=== PATIENT | female | born 1980 | race Caucasian/White ===

== ENCOUNTER 2017-08-20 14:08 | Emergency (ER) | payer OTHER ==
[~2017-08-20] VITALS: Ht 160 cm; Wt 54.4 kg
[~2017-08-20 14:08] MED LIST: ARIP10 PO; CARI350 PO; CIPR500 PO; CIPRO500 MG PO; CITA20 PO; CYCL10 PO; Cleocin HCl300 MG PO; DIAZ10 PO; DIAZ5 PO; DOXY100 PO; EPIN.3I IM; FAMO40 PO; HYDACE10B PO; HYDACE5 PO; HYDR1TAB94 PO; IBUP800 PO; Imitrex25 MG PO; MAGIC MOUTHWASH; METTREX2.5 PO; MISO100 PO; Norco 5-325 Ta1 EACH PO; ONDA8ODT MM; OXYACE5T PO; PHENA200 PO; Percocet 5-3251 EACH PO; Pyridium200 MG PO; RXHYD5325 PO; RXHYDACE PO; RXONDA4ODT MM; RXOXYACE PO; Valtrex1000 MG PO; [UNRECOGNIZED DRUG - OTHER]
[2017-08-20] MEDS ORDERED: OXYC1TAB11 (15:36)
== END 2017-08-20 17:08 ==
LOC: ER 14:08
DX: N63.22 Unspecified lump in the left breast, upper inner quadrant (principal); F17.210 Nicotine dependence, cigarettes, uncomplicated; Z91.030 Bee allergy status; Z88.2 Allergy status to sulfonamides; Z91.011 Allergy to milk products
CPT/HCPCS: 76642

== ENCOUNTER 2018-04-16 06:23 | Day surgery (SDC) | payer OTHER ==
[~2018-04-16] VITALS: Ht 157.5 cm; Wt 50.3 kg
[~2018-04-16 06:23] MED LIST changes: +EPIPEN 2-P0.3 MG/0.3 IM; +Imitrex50 MG PO; +MIGRAINE MEDICATION; +OXYC1TAB11; +OXYC1TAB11 PO
--- NOTE | 2018-04-16 08:21 | NUR ---
04/16/18 0821 Jammie Razo ORSC.JAR LOWER PREP [email or web address].[email or web address] UPPER PREP
--- NOTE | 2018-04-16 08:52 | NUR ---
04/16/18 0852 Junaid Leach PATIENT REPORTS 7/10 CRAMPY PAIN, PER MD ORDERS GAVE IV PAIN MEDICATION, WILL CONTINUE TO MONITOR. PATIENT VSS
--- NOTE | 2018-04-16 10:38 | NUR ---
04/16/18 Junaid Carrillo LATE ENTRY NARRATIVE PATIENT INTO SDU RECLINER RESTING, IS AT CHAIRSIDE, REPORTS 6/10 PAIN, PER MD ORDERS GAVE IV PAIN MEDICATION, WILL CONTINUE TO MONITOR. PATIENT VSS, TOLERATING PO FLUIDS AND CRACKERS WELL. DISCHARGE INSTRUCTIONS REVIEWED WITH PATIENT AND SPOUSE, BOTH DENY HAVING ANY QUESTIONS AT THE MOMENT. REASSESSED PATIENT PAIN, PATIENT REPORTS 5/10 PAIN AND IS TOLERABLE WHEN NOT MOVING "BUT GETS WORSE WHEN I MOVE AROUND", PER MD ORDERS GAVE DOSE OF PO PAIN MEDICATION. NURSE ASSISTED PATIENT VIA WC TO HER RIDE HOME.
--- NOTE | 2018-04-16 11:05 | NUR ---
04/16/18 1105 Junaid Leach PATIENT UNABLE TO REMOVE ALL JEWELERY, PATIENT SIGNED FORM AND TAPED A COUPLE PIERCINGS, TOOK PATIENTS JEWELERY WHEN SHE WENT BACK TO THE OR
== END 2018-04-16 10:13 | disposition home or self-care (01) ==
LOC: ORSCSDS 06:23
PROVIDERS: Obstetrics & Gynecology
PROC: 0U5F4ZZ Destruction of Cul-de-sac, Percutaneous Endoscopic Approach (ICD-10-PCS; principal; 2018-04-16 07:30)
DX: R10.2 Pelvic and perineal pain (principal); N80.3 Endometriosis of pelvic peritoneum; N73.6 Female pelvic peritoneal adhesions (postinfective); F17.210 Nicotine dependence, cigarettes, uncomplicated
CPT/HCPCS: J1100; J1885; J2250; J2405; J2710; J3010

== ENCOUNTER 2020-02-07 16:11 | Emergency (ER) | payer BC ==
[~2020-02-07] VITALS: Ht 157.5 cm; Wt 47.6 kg
[~2020-02-07 16:11] MED LIST changes: +FLUC150A PO; +Keflex500 MG PO
[2020-02-07] MEDS ORDERED: Kristalose20 GM PO (18:04)
[2020-02-07] MEDS ORDERED: METAMUCIL POWD575 GM PO (18:04)
== END 2020-02-07 18:45 | disposition home or self-care (01) ==
LOC: ER 16:11
DX: R10.9 Unspecified abdominal pain (principal); F17.210 Nicotine dependence, cigarettes, uncomplicated; Z88.2 Allergy status to sulfonamides; Z91.030 Bee allergy status; Z91.011 Allergy to milk products
CPT/HCPCS: 74018; 99283-25

== ENCOUNTER 2020-10-29 11:57 | Emergency (ER) | payer BC ==
[~2020-10-29] VITALS: Ht 157.5 cm; Wt 50.8 kg
[~2020-10-29 11:57] MED LIST changes: +Kristalose20 GM PO; +METAMUCIL POWD575 GM PO
[2020-10-29 12:34] LABS: BASOPHILS ABSOLUTE AUTO 0.04 K/mm3 (0.00-0.23); BASOPHILS PERCENT AUTO 1 % (0-2); EOSINOPHILS ABSOLUTE AUTO 0.29 K/mm3 (0.00-0.68); EOSINOPHILS PERCENT AUTO 4 % (0-6); Hematocrit 39.4 % (33.0-51.0); Hemoglobin 13.2 g/dL (11.5-16.0); IMMATURE GRAN ABSOLUTE AUTO 0.01 K/mm3 (0.00-0.10); IMMATURE GRAN PERCENT AUTO 0 % (0-1); LYMPHOCYTES ABSOLUTE AUTO 3.29 K/mm3 (0.84-5.20); LYMPHOCYTES PERCENT AUTO 46 % (21-46); MONOCYTES ABSOLUTE AUTO 0.48 K/mm3 (0.16-1.47); MONOCYTES PERCENT AUTO 7 % (4-13); Mean Corpuscular HGB 30.7 pg (26.0-34.0); Mean Corpuscular HGB Conc 33.5 g/dL (31.5-36.5); Mean Corpuscular Volume 92 fL (80-100); Mean Platelet Volume 8.8 fL (9.1-12.4); NEUTROPHILS ABSOLUTE AUTO 2.99 K/mm3 (1.96-9.15); NEUTROPHILS PERCENT AUTO 42 % (41-73); Platelet Count 261 K/mm3 (150-400); RDW Coefficient Variation 12.1 % (11.7-14.2); RDW Standard Deviation 40.6 fL (35.1-46.3)
[2020-10-29 12:51] LABS: Alanine Aminotransfer (ALT/SGP 22 U/L (12-78); Albumin, Blood 3.6 g/dL (3.4-5.0); Alk Phos 80 U/L (50-136); Anion Gap 3 mmol/L (6-16); Aspartate Aminotrans (AST/SGOT 17 U/L (12-37); Bilirubin, Total 0.3 mg/dL (0.1-1.0); Blood Urea Nitrogen 15 mg/dL (8-24); Bun/Creatinine Ratio 18.8 (12.0-20.0); CO2, Blood 30 mmol/L (21-32); Chloride, Blood 105 mmol/L (98-108); Globulin, Blood 3.5 g/dL (2.2-4.0); Glomerular Filtration Rate >60 (60-); Glucose, Blood 102 mg/dL (70-99); Potassium, Blood 4.1 mmol/L (3.5-5.5); Sodium, Blood 138 mmol/L (136-145); Total Protein, Blood 7.1 g/dL (6.4-8.2)
== END 2020-10-29 15:46 | disposition left against medical advice (07) ==
LOC: ER 11:57
PROVIDERS: Physician Assistant
DX: N92.0 Excessive and frequent menstruation with regular cycle (principal); Z53.21 Procedure and treatment not carried out due to patient leaving prior to being seen by health care provider
CPT/HCPCS: 36415; 80053; 81025; 85025; 99283

== ENCOUNTER 2020-10-30 01:19 | Emergency (ER) | payer BC ==
[~2020-10-30] VITALS: Ht 157.5 cm; Wt 50.8 kg
[2020-10-30 05:40] LABS: Calcium, Ionized (POC) 1.17 mmol/L (1.10-1.46); Chloride (POC) 100 mmol/L (98-108); Creatinine (POC) 0.9 mg/dL (0.6-1.0); Glucose (ISTAT POC) 75 mg/dL (70-99); Hemoglobin (POC) 12.6 g/dL (12.0-16.0); Potassium (POC) 4.4 mmol/L (3.5-5.5); Sodium (POC) 140 mmol/L (135-148); Total CO2 (POC) 30 mmol/L (21-32)
== END 2020-10-30 06:23 | disposition home or self-care (01) ==
LOC: ER 01:19
PROVIDERS: Emergency Medicine
DX: N92.0 Excessive and frequent menstruation with regular cycle (principal); F17.210 Nicotine dependence, cigarettes, uncomplicated
CPT/HCPCS: 80047; 81025; 85014; 99283

== ENCOUNTER 2021-03-28 11:43 | Emergency (ER) | payer BC ==
[~2021-03-28] VITALS: Ht 157.5 cm; Wt 49.9 kg
== END 2021-03-28 13:54 | disposition left against medical advice (07) ==
LOC: ER 11:43
DX: M54.2 Cervicalgia (principal); R07.81 Pleurodynia; Z88.2 Allergy status to sulfonamides; G43.909 Migraine, unspecified, not intractable, without status migrainosus; F17.210 Nicotine dependence, cigarettes, uncomplicated
CPT/HCPCS: 70360; 71046; 99282-25

== ENCOUNTER 2021-05-12 06:26 | Day surgery (SDC) | payer BC ==
[~2021-05-12] VITALS: Ht 157.5 cm; Wt 50.6 kg
--- NOTE | 2021-05-12 06:53 | NUR ---
Ambulatory in Day Surgery. History, Chart, Medications and Allergies reviewed before start of procedure. Patient confirms NPO status and agrees with scheduled surgery. Patient States Post-Procedure ride home has been arranged.
--- NOTE | 2021-05-12 10:44 | NUR ---
ARRIVAL PT ARRIVED TO UNIT FROM PACU AT 1030. ROOM AIR, SATS 100%. PT REPORTS PAIN MORE DISCOMFORT THAN PAIN. REPORTS JUST FEELING COLD. WARM BLANKETS AND K PAD PROVIDED. PT CURRENTLY SLEEPING. PLAN IS TO START ORAL PAIN MEDICATIONS AND DC BROWER ONCE PATIENT AMBULATES. CALL LIGHT IS IN REACH. ICE WATER AND JELLO OFFERED. PT DENIES FURTHER NEEDS AT THIS TIME. SMALL AMOUNT DRAINAGE ON MICHAEL PAD. LAP SITES X2 CDI. LUNGS COARSE, BUT CAN TAKE DEEP BREATHS.
[2021-05-12 12:18] LABS: BASOPHILS ABSOLUTE AUTO 0.01 K/mm3 (0.00-0.23); BASOPHILS PERCENT AUTO 0 % (0-2); EOSINOPHILS ABSOLUTE AUTO 0.02 K/mm3 (0.00-0.68); EOSINOPHILS PERCENT AUTO 0 % (0-6); Hematocrit 40.8 % (33.0-51.0); Hemoglobin 13.1 g/dL (11.5-16.0); IMMATURE GRAN ABSOLUTE AUTO 0.02 K/mm3 (0.00-0.10); IMMATURE GRAN PERCENT AUTO 0 % (0-1); LYMPHOCYTES PERCENT AUTO 9 % (21-46); MONOCYTES ABSOLUTE AUTO 0.12 K/mm3 (0.16-1.47); MONOCYTES PERCENT AUTO 1 % (4-13); Mean Corpuscular HGB 30.1 pg (26.0-34.0); Mean Corpuscular HGB Conc 32.1 g/dL (31.5-36.5); Mean Corpuscular Volume 94 fL (80-100); NEUTROPHILS ABSOLUTE AUTO 8.44 K/mm3 (1.96-9.15); NEUTROPHILS PERCENT AUTO 90 % (41-73); Platelet Count 231 K/mm3 (150-400); RDW Coefficient Variation 12.3 % (11.7-14.2); RDW Standard Deviation 42.7 fL (35.1-46.3); Red Blood Cell Count 4.35 M/mm3 (3.80-5.20); White Blood Cell Count 9.41 K/mm3 (4.00-11.30)
--- NOTE | 2021-05-12 17:05 | NUR ---
DISCHARGE PT DISCHARGED AT 1700. BROWER REMOVED, PT ABLE TO SPONTANEOUSLY VOID. AMBULATING WELL INDEPENDANTLY. TOLERATING PO WELL, NO NAUSEA. PICKED UP MEDICATIONS PRIOR TO DISCHARGE. LAP SITES CDI. ALL INSTRUCTIONS GONE OVER WITH PATIENT, NO FURTHER QUESTIONS.
== END 2021-05-12 17:01 | disposition home or self-care (01) ==
LOC: ORSCMMR 06:26 → ORD 07:30 → SURS 10:17 → ORSCMMR 17:01 → SURS 17:01
PROVIDERS: Obstetrics & Gynecology
PROC: 0UT9FZZ Resection of Uterus, Via Natural or Artificial Opening With Percutaneous Endoscopic Assistance (ICD-10-PCS; principal; 2021-05-12 07:30)
DX: R10.2 Pelvic and perineal pain (principal); N80.9 Endometriosis, unspecified; N94.6 Dysmenorrhea, unspecified; J45.909 Unspecified asthma, uncomplicated; F17.210 Nicotine dependence, cigarettes, uncomplicated; K21.9 Gastro-esophageal reflux disease without esophagitis; F41.8 Other specified anxiety disorders
CPT/HCPCS: 36415; 85025; 88307; A9270; J0171; J0330; J0690; J1100; J1885; J2250; J2270; J2405; J2704; J3010; J7120

== ENCOUNTER 2021-10-18 04:32 | Emergency (ER) | payer BC, OTHER ==
[~2021-10-18] VITALS: Ht 157.5 cm; Wt 48.5 kg
[2021-10-18] MEDS ORDERED: IBUP800 PO (08:35)
[2021-10-18] MEDS ORDERED: Robaxin750 MG PO (08:35)
== END 2021-10-18 09:31 | disposition home or self-care (01) ==
LOC: ER 04:32
DX: R07.9 Chest pain, unspecified (principal); M54.2 Cervicalgia; M25.561 Pain in right knee; F17.210 Nicotine dependence, cigarettes, uncomplicated; V43.52XA Car driver injured in collision with other type car in traffic accident, initial encounter; Z79.899 Other long term (current) drug therapy; Z91.038 Other insect allergy status; Z88.2 Allergy status to sulfonamides; Z91.018 Allergy to other foods
CPT/HCPCS: 70450; 71045; 72125; 96372; 99284-25; A9270; J1885

== ENCOUNTER → 2024-10-10 | Emergency (ER) | payer BC, OTHER ==
[~2024-10-10] VITALS: Ht 157.5 cm; Wt 52.2 kg
[~2024-10-10] MED LIST changes: +Robaxin750 MG PO
[2024-10-10 09:31] VITALS: BP 131/98
== END ==
LOC: ER 09:15
DX: M79.672 Pain in left foot (principal); G43.909 Migraine, unspecified, not intractable, without status migrainosus; F17.210 Nicotine dependence, cigarettes, uncomplicated; Z79.899 Other long term (current) drug therapy; Z91.030 Bee allergy status; Z88.2 Allergy status to sulfonamides; Z91.040 Latex allergy status
CPT/HCPCS: 73630; 99283-25

== ENCOUNTER 2024-12-03 11:39 | Emergency (ER) | payer OTHER ==
[~2024-12-03] VITALS: Ht 157.5 cm; Wt 52.2 kg
[2024-12-03 11:59] VITALS: BP 151/97
[2024-12-03] MEDS ORDERED: Benztropine Mesylate 1 MG/ML 2ML Amp IV ONE (12:05)
== END 2024-12-03 16:20 | disposition left against medical advice (07) ==
LOC: ER 11:39
DX: M54.50 Low back pain, unspecified (principal); G43.909 Migraine, unspecified, not intractable, without status migrainosus; F17.210 Nicotine dependence, cigarettes, uncomplicated; Z91.038 Other insect allergy status; Z88.2 Allergy status to sulfonamides; Z91.040 Latex allergy status
CPT/HCPCS: 99283